=== PATIENT | female | born 1940 | race Native Hawaiian/Other Pacific Islander ===

== ENCOUNTER 2019-04-16 23:33 | Emergency (ER) | payer OTHER ==
[~2019-04-16] VITALS: Ht 152.4 cm; Wt 50.8 kg
[2019-04-16 23:40] VITALS: BP 139/78; TEMP 97.2
[2019-04-17 00:29] LABS: PLATELET COUNT 138 K/uL (152-353)
[2019-04-17] MEDS ORDERED: DIVA500T2 PO (00:54)
[2019-04-17] MEDS ORDERED: EASY-LAX100 MG PO (00:55)
[2019-04-17] MEDS ORDERED: NEURONTIN 100M100 MG PO (00:56)
[2019-04-17] MEDS ORDERED: TIROSINT100 MCG PO (00:57)
[2019-04-17] MEDS ORDERED: CLARITIN10 MG PO (00:57)
[2019-04-17] MEDS ORDERED: MIRALAX3350 N1 PO (00:58)
[2019-04-17] MEDS ORDERED: SEROQUEL100 MG PO (00:59)
[2019-04-17] MEDS ORDERED: SENNOSIDES8.6 MG PO (01:00)
[2019-04-17] MEDS ORDERED: SEROQUEL50 MG PO (01:03)
== END 2019-04-17 02:33 | disposition other institution (70) ==
LOC: ED 23:33
PROVIDERS: Emergency Medicine
DX: F03.91 Unspecified dementia, unspecified severity, with behavioral disturbance (principal); Z04.6 Encounter for general psychiatric examination, requested by authority
CPT/HCPCS: 80053; 81000; 85027; 93005; 99285

== ENCOUNTER 2019-05-05 14:38 | Emergency (ER) | payer OTHER ==
[~2019-05-05] VITALS: Ht 152.4 cm; Wt 44.0 kg
[2019-05-05 14:38] VITALS: BP 126/79; TEMP 97.7
[~2019-05-05 14:38] MED LIST: CLARITIN10 MG PO; DIVA500T2 PO; EASY-LAX100 MG PO; MIRALAX3350 N1 PO; NEURONTIN 100M100 MG PO; SENNOSIDES8.6 MG PO; SEROQUEL100 MG PO; SEROQUEL50 MG PO; TIROSINT100 MCG PO
[2019-05-05 17:12] LABS: PLATELET COUNT 198 K/uL (152-353)
[2019-05-05] MEDS ORDERED: MEMA5TAB PO (17:18)
[2019-05-05] MEDS ORDERED: DONE5TAB PO (17:18)
[2019-05-05] MEDS ORDERED: RISP0.25 PO ×2 (17:18)
[2019-05-05] MEDS ORDERED: MAGN400T4 PO (17:18)
[2019-05-05] MEDS ORDERED: ESCI10TA PO (17:18)
[2019-05-05] MEDS ORDERED: VALPROIC ACID10 ML PO (17:18)
[2019-05-05 17:29] LABS: SODIUM 160 mmol/L (136-145)
[2019-05-22] MEDS ORDERED: QUETIAPINE25 MG PO (16:50)
[2019-05-22] MEDS ORDERED: MIRALAX3350 N1 PO (16:52)
[2019-05-22] MEDS ORDERED: DOCU SOFT100 MG PO (16:54)
[2019-05-22] MEDS ORDERED: DIVA125C PO (16:56)
[2019-06-05] MEDS ORDERED: RISP0.25 PO ×2 (08:53)
[2019-06-05] MEDS ORDERED: DIVA125C PO (08:54)
[2019-06-05] MEDS ORDERED: GABA300C2 PO (08:54)
[2019-06-05] MEDS ORDERED: MIRALAX3350 N1 PO (08:55)
[2019-06-05] MEDS ORDERED: DOCU SOFT100 MG PO (08:55)
== END 2019-05-05 17:47 | disposition short-term general hospital (02) ==
LOC: ED 15:09
PROVIDERS: Student in an Organized Health Care Education/Training Program
PROC: 0T9B70Z Drainage of Bladder with Drainage Device, Via Natural or Artificial Opening (ICD-10-PCS; principal; 2019-05-05)
PROC: 0BH17EZ Insertion of Endotracheal Airway into Trachea, Via Natural or Artificial Opening (ICD-10-PCS; 2019-05-05)
PROC: 05HM33Z Insertion of Infusion Device into Right Internal Jugular Vein, Percutaneous Approach (ICD-10-PCS; 2019-05-05)
PROC: B543ZZA Ultrasonography of Right Jugular Veins, Guidance (ICD-10-PCS; 2019-05-05)
DX: S06.5X3A Traumatic subdural hemorrhage with loss of consciousness of 1 hour to 5 hours 59 minutes, initial encounter (principal); R56.9 Unspecified convulsions; E07.9 Disorder of thyroid, unspecified; I48.92 Unspecified atrial flutter; W18.30XA Fall on same level, unspecified, initial encounter; Y93.E1 Activity, personal bathing and showering; Y92.231 Patient bathroom in hospital as the place of occurrence of the external cause
CPT/HCPCS: 36415; 36558; 36600; 51702; 80053; 80329; 81000; 82140; 82805; 83605; 83735; 84443; 84484; 85027; 85610; 85730; 87040; 93005; 96360; 96375; 99285; C1768; J0330; J3490